=== PATIENT | female | born 2000 | race Caucasian/White ===

== ENCOUNTER → 2018-02-14 | Day surgery (SDC) | payer OTHER ==
[2018-02-13 15:01] VITALS: BMI 21.7
[~2018-02-14] MED LIST: Lidocaine 1% w/Epinephrine 1:100K 30 ML VIAL ONE
--- NOTE | 2018-02-14 11:42 | OP ---
DATE OF PROCEDURE: 02/15/2108 SURGEON: Dr. Samuel Reveles PROCEDURE: LINQ implantable loop recorder insertion. REASON FOR PROCEDURE: Ms. Charles is a 17-year-old woman with history of syncope here for loop rec order implant. PROCEDURE: The patient's precordial area was prepped, draped and anesthetized with subcutaneous lido anthony. Incision made over the 4th intercostal space with a standard [employer] LINQ tool kit, the loo p recorder was inserted. The wound was closed with Steri-Strips. The model number of the LINQ recorder is [id number], serial number is [id number]. PLAN: Continue routine monitoring.
== END ==
LOC: CCL 10:26
PROVIDERS: ATTEND Internal Medicine Cardiovascular Disease
PROC: 0JH632Z Insertion of Monitoring Device into Chest Subcutaneous Tissue and Fascia, Percutaneous Approach (ICD-10-PCS; principal; 2018-02-14)
DX: R55 Syncope and collapse (principal)
CPT/HCPCS: 33282; C1764; J2001